=== PATIENT | male | born 1945 | race Caucasian/White ===

== ENCOUNTER 2019-02-20 19:45 | Emergency (ER) | payer MEDICARE ==
[~2019-02-20] VITALS: Ht 172.7 cm; Wt 72.6 kg
[2019-02-20] MEDS ORDERED: ASPI81CH PO (20:09)
[2019-02-20] MEDS ORDERED: BUPR150T2 (20:10)
[2019-02-20] MEDS ORDERED: DOC250 PO (20:11)
[2019-02-20] MEDS ORDERED: CARV3.125 PO (20:11)
[2019-02-20] MEDS ORDERED: CITA20 PO (20:12)
[2019-02-20] MEDS ORDERED: DULO30 PO (20:12)
[2019-02-20 20:13] LABS: BASOPHILS ABSOLUTE AUTO 0.02 K/mm3 (0.00-0.23); BASOPHILS PERCENT AUTO 0 % (0-2); EOSINOPHILS PERCENT AUTO 1 % (0-6); Hematocrit 35.3 % (37.0-53.0); Hemoglobin 11.2 g/dL (13.5-17.5); IMMATURE GRAN ABSOLUTE AUTO 0.06 K/mm3 (0.00-0.10); IMMATURE GRAN PERCENT AUTO 1 % (0-1); LYMPHOCYTES ABSOLUTE AUTO 1.54 K/mm3 (0.84-5.20); LYMPHOCYTES PERCENT AUTO 14 % (21-46); MONOCYTES ABSOLUTE AUTO 0.98 K/mm3 (0.16-1.47); MONOCYTES PERCENT AUTO 9 % (4-13); Mean Corpuscular HGB 29.7 pg (26.0-34.0); Mean Corpuscular HGB Conc 31.7 g/dL (31.5-36.5); Mean Corpuscular Volume 94 fL (80-100); NEUTROPHILS ABSOLUTE AUTO 8.51 K/mm3 (1.96-9.15); NEUTROPHILS PERCENT AUTO 76 % (41-73); Platelet Count 257 K/mm3 (150-400); RDW Coefficient Variation 13.1 % (11.7-14.2); RDW Standard Deviation 44.8 fL (35.1-46.3); Red Blood Cell Count 3.77 M/mm3 (4.30-5.90); White Blood Cell Count 11.21 K/mm3 (4.00-11.30)
[2019-02-20] MEDS ORDERED: ALBU3IS INH (20:13)
[2019-02-20] MEDS ORDERED: FURO40 PO (20:13)
[2019-02-20] MEDS ORDERED: ELIQUIS5 MG PO (20:13)
[2019-02-20] MEDS ORDERED: Ipratropium Bro30 ML (20:14)
[2019-02-20] MEDS ORDERED: POTA10T PO (20:14)
[2019-02-20] MEDS ORDERED: METF500 PO (20:14)
[2019-02-20] MEDS ORDERED: PRED10 PO (20:15)
[2019-02-20] MEDS ORDERED: OMEPRAZOLE20 MG PO (20:15)
[2019-02-20] MEDS ORDERED: BUDE6HFA INH (20:16)
[2019-02-20] MEDS ORDERED: TAMS.4ER PO (20:16)
[2019-02-20] MEDS ORDERED: Senna8.6 MG PO (20:16)
[2019-02-20] MEDS ORDERED: ALBU90OI INH (20:17)
[2019-02-20] MEDS ORDERED: TRAM50 PO (20:17)
[2019-02-20] MEDS ORDERED: CHOL10002 PO (20:17)
[2019-02-20] MEDS ORDERED: TIOT18 INH (20:18)
[2019-02-20 20:37] LABS: Alanine Aminotransfer (ALT/SGP 13 U/L (12-78); Albumin, Blood 3.3 g/dL (3.4-5.0); Albumin/Globulin Ratio 1.1 (0.8-1.8); Alk Phos 50 U/L (50-136); Anion Gap 5 mmol/L (6-16); Aspartate Aminotrans (AST/SGOT 4 U/L (12-37); Bilirubin, Total 0.3 mg/dL (0.1-1.0); Blood Urea Nitrogen 12 mg/dL (8-24); Bun/Creatinine Ratio 23.2 (12.0-20.0); CO2, Blood 33 mmol/L (21-32); Chloride, Blood 103 mmol/L (98-108); Creatinine, Blood 0.52 mg/dL (0.60-1.20); Globulin, Blood 3.1 g/dL (2.2-4.0); Glomerular Filtration Rate >60 (60-); Glucose, Blood 74 mg/dL (70-99); Potassium, Blood 3.2 mmol/L (3.5-5.5); Sodium, Blood 141 mmol/L (136-145); Total Protein, Blood 6.4 g/dL (6.4-8.2); Troponin I <0.015 ng/mL (0.000-0.040)
[2019-02-20] MEDS ORDERED: Norco 5-325 Ta1 EACH PO (21:45)
[2019-02-20] MEDS ORDERED: Xanax0.5 MG PO (21:45)
[2019-02-20] MEDS ORDERED: Prednisone20 MG PO (21:45)
== END 2019-02-20 22:16 | disposition home or self-care (01) ==
LOC: ER 19:45
PROVIDERS: Emergency Medicine
DX: J44.1 Chronic obstructive pulmonary disease with (acute) exacerbation (principal); F41.9 Anxiety disorder, unspecified; I48.91 Unspecified atrial fibrillation; Z79.899 Other long term (current) drug therapy; Z79.82 Long term (current) use of aspirin; Z79.84 Long term (current) use of oral hypoglycemic drugs; Z79.01 Long term (current) use of anticoagulants; Z87.891 Personal history of nicotine dependence
CPT/HCPCS: 71046; 80053; 82947; 83880; 84484; 85025; 93005; 93010; 94640; 96374; 96375; 99285-25; J2060; J2930

== ENCOUNTER 2019-03-01 12:54 | Emergency (ER) | payer MEDICARE ==
[~2019-03-01] VITALS: Ht 439.4 cm; Wt 56.7 kg
[~2019-03-01 12:54] MED LIST: ALBU3IS NEB; ALBU90OI INH; Aspirin EC81 MG PO; BUDE6HFA INH; BUPR150T2 PO; CHOL10002 PO; CITA20 PO; DOC250 PO; DULO30 PO; ELIQUIS5 MG PO; FURO40 PO; Ipratropium Bro30 ML; METF500 PO; Norco 5-325 Ta1 EACH PO; OMEPRAZOLE20 MG PO; POTA10T PO; PRED10 PO; Prednisone20 MG PO; SPIRIVA RESPIMAT4 GM INH; Senna8.6 MG PO; TAMS.4ER PO; TRAM50 PO; Xanax0.5 MG PO
[2019-03-01 13:50] LABS: BASOPHILS ABSOLUTE AUTO 0.03 K/mm3 (0.00-0.23); BASOPHILS PERCENT AUTO 0 % (0-2); EOSINOPHILS ABSOLUTE AUTO 0.09 K/mm3 (0.00-0.68); EOSINOPHILS PERCENT AUTO 1 % (0-6); Hematocrit 35.8 % (37.0-53.0); Hemoglobin 11.3 g/dL (13.5-17.5); IMMATURE GRAN ABSOLUTE AUTO 0.06 K/mm3 (0.00-0.10); IMMATURE GRAN PERCENT AUTO 1 % (0-1); LYMPHOCYTES ABSOLUTE AUTO 0.58 K/mm3 (0.84-5.20); LYMPHOCYTES PERCENT AUTO 6 % (21-46); MONOCYTES ABSOLUTE AUTO 0.56 K/mm3 (0.16-1.47); MONOCYTES PERCENT AUTO 5 % (4-13); Mean Corpuscular HGB 29.6 pg (26.0-34.0); Mean Corpuscular HGB Conc 31.6 g/dL (31.5-36.5); Mean Corpuscular Volume 94 fL (80-100); NEUTROPHILS ABSOLUTE AUTO 9.16 K/mm3 (1.96-9.15); NEUTROPHILS PERCENT AUTO 87 % (41-73); Platelet Count 305 K/mm3 (150-400); RDW Coefficient Variation 12.6 % (11.7-14.2); RDW Standard Deviation 43.2 fL (35.1-46.3); Red Blood Cell Count 3.82 M/mm3 (4.30-5.90); White Blood Cell Count 10.48 K/mm3 (4.00-11.30)
[2019-03-01 14:18] LABS: Alanine Aminotransfer (ALT/SGP 13 U/L (12-78); Albumin, Blood 3.1 g/dL (3.4-5.0); Albumin/Globulin Ratio 0.9 (0.8-1.8); Alk Phos 54 U/L (50-136); Anion Gap 3 mmol/L (6-16); Aspartate Aminotrans (AST/SGOT 9 U/L (12-37); Bilirubin, Total 0.4 mg/dL (0.1-1.0); Blood Urea Nitrogen 14 mg/dL (8-24); Bun/Creatinine Ratio 25.5 (12.0-20.0); CO2, Blood 35 mmol/L (21-32); Calcium, Blood 9.7 mg/dL (8.5-10.1); Chloride, Blood 99 mmol/L (98-108); Creatinine, Blood 0.55 mg/dL (0.60-1.20); Globulin, Blood 3.6 g/dL (2.2-4.0); Glomerular Filtration Rate >60 (60-); Glucose, Blood 147 mg/dL (70-99); Potassium, Blood 4.1 mmol/L (3.5-5.5); Sodium, Blood 137 mmol/L (136-145); Total Protein, Blood 6.7 g/dL (6.4-8.2)
[2019-03-01] MEDS ORDERED: CARV3.125 PO (14:21)
[2019-03-01] MEDS ORDERED: PRED10 PO (14:27)
[2019-03-01] MEDS ORDERED: ACET325 PO (16:26)
[2019-03-01] MEDS ORDERED: ALPR.25 PO (16:27)
--- NOTE | 2019-03-01 17:15 | NUR ---
INITIAL PAL CARE CONSULT: Received report and current status from Dr Ybarra prior to my visit. Pt has end stage COPD and desires comfort care. He does not want to be admitted to the hospital but would like to return home ADRI[facility] with medications to tx severe dyspnea, anxiety and pain. He lives with his son, stanislaw and two granddaughters in the home. Son and stanislaw work but someone is home with pt nearly all of the time and family is able to arrange 24/ care. Met with pt and his son in room ER10. Pt severly dyspnic lying in bed with conversation and at rest. He has a severely atrophied and contracted left arm and reports this occured around age 10. He was living with other family in [place] and moved to [place] due to family circumstances requiring pt to relocate to another family member's home. Pt is very realistic re: his end stage lung disease and progression. He does not want to return to the hospital. He also reports severe, chronic back pain due to spinal stenosis. He is gaunt, cachectic, extremely frail appearing. He is alert and oriented and able to clearly state his needs and wishes. We discussed hospice services and plan for hospice to see pt ADRIANE at home, likely tomorrow. Pt agreeable and in favor of this plan. We discussed medications. Pt has had good results, treating anxiety with xanax but ran out of prescription when PCP, per pt, stated he needed to have counselling before rxs could be refilled. Analgesic RX was also held for a time and pt has been without meds to tx s/s for multiple days to a week or more. On d/c he has been prescribed Roxanol and ativan. Instructions given to pt on starting with lowest dose of 5 mg of Roxanol for air hunger or pain prn. Instructed son on observing wakefulness, level of pain and anxiety before using both antianxiety agent and Roxanol. Dorina from [facility] also introduced herself and provided additional contact info for family and will f/u with them later this maco or in am. Pt was anxious to be d/c'd home as stanislaw was waiting for a ride home from work. Hospice benefit and program explained to pt and son briefly and asked them to write any questions down for admitting [employer] [facility] [employer]. Report given to ER staff before I left the unit. Orders for Hospice entered with notes that referral and d/c home has already been coordinated with Dorina from [facility].
== END 2019-03-01 18:14 | disposition home or self-care (01) ==
LOC: ER 12:54
PROVIDERS: Emergency Medicine
DX: J44.9 Chronic obstructive pulmonary disease, unspecified (principal); Z51.5 Encounter for palliative care; Z79.82 Long term (current) use of aspirin; Z79.899 Other long term (current) drug therapy; Z79.891 Long term (current) use of opiate analgesic; Z79.52 Long term (current) use of systemic steroids; I48.91 Unspecified atrial fibrillation; Z87.891 Personal history of nicotine dependence
CPT/HCPCS: 36415; 71045; 80053; 85025; 93005; 93010; 94644; 96374; 99285-25; J2930